=== PATIENT | female | born 1965 | race Caucasian/White ===

== ENCOUNTER 2016-10-28 09:15 | Emergency (ER) | payer OTHER ==
[~2016-10-28] VITALS: Ht 154.9 cm; Wt 76.0 kg
[2016-10-28 09:18] VITALS: BP 111/68; PULSE 84; RESP 20; TEMP 98.5; O2SAT 96
[2016-10-28 10:36] LABS: AUTOMATED NEUTROPHIL # 8.3 TH/MM3 (1.8-7.7); BASOPHIL % 0.4 % (0.0-2.0); EOSINOPHIL % 0.2 % (0.0-4.0); HEMATOCRIT 36.7 % (35.0-46.0); HEMO FLAGS DIFF FINAL; LYMPH % 16.7 % (9.0-44.0); LYMPHOCYTE # 1.8 TH/MM3 (1.0-4.8); MEAN CELL VOLUME 81.7 FL (80.0-100.0); MEAN CORPUSCULAR HEMOGLOBIN 27.3 PG (27.0-34.0); MEAN CORPUSCULAR HGB CONC 33.4 % (32.0-36.0); MONO % 4.1 % (0.0-8.0); NEUT % 78.6 % (16.0-70.0); PLATELET COUNT 315 TH/MM3 (150-450); RED CELL DISTRIBUTION WIDTH 13.3 % (11.6-17.2); WHITE BLOOD COUNT 10.6 TH/MM3 (4.0-11.0)
[2016-10-28] MEDS ORDERED: ONDANSETRON HCL 4 MG/2 ML VIAL IV ONE (11:00)
[2016-10-28 11:01] LABS: ALT (GPT) 33 U/L (10-53); ANION GAP 7 MEQ/L (5-15); AST (GOT) 28 U/L (15-37); BLOOD UREA NITROGEN 6 MG/DL (7-18); CHLORIDE 106 MEQ/L (98-107); GLOMERULAR FILTRATION RATE 71 ML/MIN (>89); POTASSIUM 4.1 MEQ/L (3.5-5.1); SODIUM (NA) 140 MEQ/L (136-145)
[2016-10-28 11:03] LABS: ALKALINE PHOSPHATASE 102 U/L (45-117); TOTAL BILIRUBIN ADULT 0.8 MG/DL (0.2-1.0)
--- NOTE | 2016-10-28 11:07 | PD ---
HPI Chief Complaint: Abdominal Pain Time Seen by Provider: 10:54 Travel History International Travel<30 days: No Contact w/Intl Traveler<30days: No Traveled to known affect area: No History of Present Illness HPI This patient complains of abdominal pain. Duration is 24 hours. Severity is moderate but at times severe. No alleviating factors. She reports that she did get subjective fever. She is not having any diarrhea. She feels nauseous but no active vomiting. She's had a cholecystectomy and a hysterectomy and retains one ovary. Pain is rather generalized and diffuse. He points to the periumbilical area. PFSH Past Medical History Diabetes: Yes (insulin) Respiratory: No (non smoker) ?: Not LMP: none Past Surgical History Hysterectomy: Yes Social History Alcohol Use: No Tobacco Use: No Substance Use: No Allergies-Medications (Allergen,Severity, Reaction): Coded Allergies: No Known Allergies (Unverified , 10/28/16) Reported Meds & Prescriptions Reported Meds & Active Scripts Active Zofran (Ondansetron HCl) 4 Mg Tab 4 Mg PO Q6HR PRN Tramadol (Tramadol HCl) 50 Mg Tab 50 Mg PO Q6H PRN Reported Glipizide 10 Mg Tab 10 Mg PO BIDAC Take 30 minutes before a meal Humulin N Inj (Insulin Human NPH) 1,000 Unit/10 Ml Vial 20 Units SQ HS Metformin (Metformin HCl) 500 Mg Tab 500 Mg PO BIDPC With meals Review of Systems General / Constitutional: Positive: Fever Eyes: No: Visual changes HENT: No: Headaches Cardiovascular: No: Chest Pain or Discomfort Respiratory: No: Shortness of Breath Gastrointestinal: Positive: Nausea, Abdominal Pain Genitourinary: No: Dysuria Musculoskeletal: No: Pain Skin: No Rash Neurologic: No: Weakness Psychiatric: No: Depression Endocrine: No: Polydipsia Hematologic/Lymphatic: No: Easy Bruising Physical Exam Narrative GENERAL: Well-nourished, well-developed patient with abdominal pain. SKIN: Focused skin assessment reveals no rash and nodules. Skin is Warm and dry. HEAD: Atraumatic. Normocephalic. EYES: Pupils equal and round. No scleral icterus. No injection or drainage. ENT: No nasal bleeding or discharge. Mucous membranes pink and moist. NECK: Trachea midline. No JVD. CARDIOVASCULAR: Regular rate and rhythm. No murmur appreciated. RESPIRATORY: No accessory muscle use. Clear to auscultation. Breath sounds equal bilaterally. GASTROINTESTINAL: Abdomen soft, has periumbilical tenderness as well as some in the epigastrium and right lower quadrant. Hepatic and splenic margins not palpable. MUSCULOSKELETAL: No obvious deformities. No clubbing. No cyanosis. No edema. NEUROLOGICAL: Awake and alert. No obvious cranial nerve deficits. Motor grossly within normal limits. Normal speech. PSYCHIATRIC: Appropriate mood and affect; insight and judgment normal. Data Data Last Documented VS Vital Signs Date Time Temp Pulse Resp B/P Pulse Ox O2 Delivery O2 Flow Rate FiO2 10/28/16 12:22 77 18 114/73 97 Room Air 10/28/16 09:18 98.5 Orders Complete Blood Count With Diff (10/28/16 10:12) Comprehensive Metabolic Panel (10/28/16 10:12) Urinalysis - C+S If Indicated (10/28/16 10:12) Iv Access Insert/Monitor (10/28/16 10:12) Oxygen Administration (10/28/16 10:12) Oximetry (10/28/16 10:12) Lipase (10/28/16 10:12) Ct Abd/Pel W Iv Contrast(Rout) (10/28/16 ) Ondansetron Inj (Zofran Inj) (10/28/16 11:00) Sodium Chlor 0.9% 1000 Ml Inj (Ns 1000 M (10/28/16 11:15) Morphine Inj (Morphine Inj) (10/28/16 11:15) Labs Laboratory Tests Test 10/28/16 10:24 White Blood Count 10.6 TH/MM3 Red Blood Count 4.50 MIL/MM3 Hemoglobin 12.3 GM/DL Hematocrit 36.7 % Mean Corpuscular Volume 81.7 FL Mean Corpuscular Hemoglobin 27.3 PG Mean Corpuscular Hemoglobin 33.4 % Concent Red Cell Distribution Width 13.3 % Platelet Count 315 TH/MM3 Mean Platelet Volume 7.5 FL Neutrophils (%) (Auto) 78.6 % Lymphocytes (%) (Auto) 16.7 % Monocytes (%) (Auto) 4.1 % Eosinophils (%) (Auto) 0.2 % Basophils (%) (Auto) 0.4 % Neutrophils # (Auto) 8.3 TH/MM3 Lymphocytes # (Auto) 1.8 TH/MM3 Monocytes # (Auto) 0.4 TH/MM3 Eosinophils # (Auto) 0.0 TH/MM3 Basophils # (Auto) 0.0 TH/MM3 CBC Comment DIFF FINAL Differential Comment Sodium Level 140 MEQ/L Potassium Level 4.1 MEQ/L Chloride Level 106 MEQ/L Carbon Dioxide Level 27.0 MEQ/L Anion Gap 7 MEQ/L Blood Urea Nitrogen 6 MG/DL Creatinine 0.85 MG/DL Estimat Glomerular Filtration 71 ML/MIN Rate Random Glucose 123 MG/DL Calcium Level 9.0 MG/DL Total Bilirubin 0.8 MG/DL Aspartate Amino Transf 28 U/L (AST/SGOT) Alanine Aminotransferase 33 U/L (ALT/SGPT) Alkaline Phosphatase 102 U/L Total Protein 8.2 GM/DL Albumin 3.6 GM/DL Lipase 116 U/L [facility] Medical Decision Making Medical Screen Exam Complete: Yes Emergency Medical Condition: Yes Medical Record Reviewed: Yes Differential Diagnosis Appendicitis, colitis, pancreatitis Narrative Course I have reviewed the patient's electronic medical record. Patient was last here July 2010 IV placed I gave her IV Zofran and a dose of IV morphine for symptom relief along with a liter of normal saline IV bolus CBC is normal Metabolic profile is normal Lipase is normal LFTs are normal Urinalysis is clean CT of abdomen and pelvis shows a mild ascending colitis without anything dangerous such as perforation or obstruction Reviewed with patient and at bedside Stable for outpatient follow-up Medicine for pain and nausea written Recommend GI follow-up, she has never had a colonoscopy and is overdue for one and I have recommended that Diagnosis Primary Impression: Colitis, acute Additional Instructions: The patient was advised to follow up with their physician and return if they worsen. The patient was warned about potential sedation for the medications they will receive on prescription. I have recommended clear liquids for 24 hours, then gradually advance as tolerated. Med/Other Pt SpecificInfo: Prescription(s) given Scripts Ondansetron (Zofran)4 Mg Tab4 Mg PO Q6HR PRN (NAUSEA OR VOMITING) #10 TAB Ref 0 Prov:John Quiñonez MD 10/28/16 Tramadol 50 Mg Tab50 Mg PO Q6H PRN (PAIN) #20 TAB Ref 0 Prov:John Quiñonez MD 10/28/16 Disposition: 01 DISCHARGE HOME Condition: Stable John Quiñonez MD Oct 28, 2016 11:07
[2016-10-28] MEDS ORDERED: SODIUM CHLOR 0.9% 1000 ML INJ 1,000 ML IV ONE (11:15)
[2016-10-28] MEDS ORDERED: MORPHINE SULFATE 4 MG/ML INJ IV PUSH ONE (11:15)
[2016-10-28 12:19] VITALS: RESP 18; O2SAT 98
[2016-10-28 12:22] VITALS: BP 114/73; PULSE 77; RESP 18; O2SAT 97
[2016-10-28 12:36] VITALS: RESP 17
[2016-10-28] MEDS ORDERED: METF500T PO (12:37)
[2016-10-28] MEDS ORDERED: INSU100V3 SQ (12:37)
[2016-10-28] MEDS ORDERED: GLIP10TA6 PO (12:37)
[2016-10-28] MEDS ORDERED: IOHEXOL 350 MG/ML 10 ML VIAL (for RAD DIAG) IV ONE (13:05)
--- NOTE | 2016-10-28 13:37 | RADRPT ---
EXAM DATE/TIME: 10/28/2016 13:05 [facility] COMPARISON: No previous studies available for comparison. INDICATIONS : Abdominal pain. IV CONTRAST: 92 cc Omnipaque 350 (iohexol) IV ORAL CONTRAST: No oral contrast ingested. RADIATION DOSE: 8.82 CTDIvol (mGy) MEDICAL HISTORY : Diabetes mellitus type 2. SURGICAL HISTORY : Hysterectomy. ENCOUNTER: Initial ACUITY: 2 days PAIN SCALE: 8/10 LOCATION: Bilateral lower quadrant TECHNIQUE: Volumetric scanning of the abdomen and pelvis was performed. Using automated exposure control and ad justment of the mA and/or kV according to patient size, radiation dose was kept as low as reasonably achievable to obtain optimal diagnostic quality images. FINDINGS: Lung bases are clear. The liver is free of focal defects. There is very mild prominence to the comm on duct measuring 8 mm. Spleen and pancreas are unremarkable in spite of the mild prominence to the common duct. Adrenal glands appear normal. There is no ascites or adenopathy. There is moderate bowel wall thickening in the ascending colon go ing into mid transverse colon that would be suspicious for colitis. In the pelvis there are scattered diverticula without diverticulitis. There is no ascites or adenopathy. Review of bone windows reveals a small hemangioma in the T12 vertebral body. This is an incidental f inding. Mild degenerative changes are noted. CONCLUSION: Findings consistent with a mild colitis ascending colon. Moi Olson MD FACR on October 28, 2016 at 13:28 Board Certified Radiologist. This report was verified electronically.
[2016-10-28] MEDS ORDERED: ZOFR4TAB PO (14:12)
[2016-10-28] MEDS ORDERED: TRAM50TA PO (14:12)
[2016-10-28 14:20] VITALS: BP 118/77; TEMP 97.8
== END 2016-10-28 14:20 | disposition home or self-care (01) ==
LOC: NEPD 09:15
DX: K52.9 Noninfective gastroenteritis and colitis, unspecified (principal); R50.9 Fever, unspecified; E11.9 Type 2 diabetes mellitus without complications; Z79.4 Long term (current) use of insulin
CPT/HCPCS: 74177; 80053; 83690; 85025; 96361; 96374; 96375; 99284; J2270; J2405; J7030; Q9967